=== PATIENT | male | born 1985 | race Caucasian/White ===

== ENCOUNTER 2017-05-12 10:25 | Emergency (ER) | payer OTHER ==
--- NOTE | 2017-05-12 10:47 | EDM.PDOC ---
ED HPI GENERAL MEDICAL PROBLEM - General Chief Complaint: Lower Extremity Injury/Pain Stated Complaint: FELL DOWN STAIRS AT WORK Time Seen by Provider: 05/12/17 10:29 Source of Information: Reports: Patient, RN, RN Notes Reviewed History Limitations: Reports: No Limitations - History of Present Illness INITIAL COMMENTS - FREE TEXT/NARRATIVE: Patient presents to the emergency room at [facility] complaining of a right ankle injury. This is a work-related injury. 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 The patient works for the [employer]. The patient complains of pain along the lateral midfoot. The patient denies any numbness tingling or paresthesia to the right lower extremity. The patient denies any previous injury or trauma to the affected area. The patient denies any right foot surgeries. Onset: Today Onset Date: 05/12/17 Onset Time: 10:00 Duration: Waxing/Waning Location: Reports: Lower Extremity, Right Quality: Reports: Throbbing Severity: Moderate Improves with: Reports: Rest Worsens with: Reports: Movement Context: Reports: Trauma Associated Symptoms: Reports: No Other Symptoms Right Ankle Pain Score (Numeric/FACES): 5 - Related Data Allergies Allergy/AdvReac Type Severity Reaction Status Date / Time No Known Allergies Allergy Verified 05/12/17 10:47 Home Meds: Home Meds . [No Known Home Meds] 05/12/17 [History] Review of Systems - Review of Systems Review Of Systems: See Below Constitutional: Denies: Chills, Fever, Weakness Respiratory: Denies: Shortness of Breath, Cough Cardiovascular: Denies: Chest Pain, Palpitations Musculoskeletal: Reports: Foot Pain (right) Skin: Reports: No Symptoms Neurological: Reports: No Symptoms. Denies: Numbness, Paresthesia, Tingling ED EXAM, GENERAL - Physical Exam Exam: See Below Exam Limited By: No Limitations General Appearance: Alert, No Apparent Distress Respiratory/Chest: No Respiratory Distress, Lungs Clear, Normal Breath Sounds Cardiovascular: Regular Rate, Rhythm Peripheral Pulses: 2+: Posterior Tibial (L), Posterior Tibial (R), Dorsalis Pedis (L), Dorsalis Pedis (R) Extremities: Limited Range of Motion (Right foot due to pain), Other (Swelling over the right lateral aspect of right foot; negative Woodson test; ROM good but painful; no obvious bone deformity) Neurological: Alert, Oriented Skin Exam: Warm, Dry, Intact, Normal Color, No Rash Course - Vital Signs Last Recorded V/S: Last Vital Signs Temp 36.6 C 05/12/17 10:35 Pulse 74 05/12/17 10:35 Resp 16 05/12/17 10:35 BP 112/63 05/12/17 10:35 Pulse Ox - Orders/Labs/Meds Orders: Active Orders 24 hr Category Date Time Status Ankle Min 3V Rt [CR] Stat Exams 05/12/17 10:41 Taken DME for Discharge [COMM] Routine Oth 05/12/17 10:54 Ordered - Radiology Interpretation Free Text/Narrative:: Right Ankle X-ray: No acute process; see scanned report in EMR Departure - Departure Time of Disposition: 11:13 Disposition: Home, Self-Care 01 Condition: Good Clinical Impression: Encounter related to worker's compensation claim Right ankle sprain Qualifiers: Encounter type: initial encounter Involved ligament of ankle: unspecified ligament Qualified Code(s): S93.401A - Sprain of unspecified ligament of right ankle, initial encounter Fall Qualifiers: Encounter type: initial encounter Qualified Code(s): W19.XXXA - Unspecified fall, initial encounter - Discharge Information Instructions: Ankle Sprain Referrals: PCP,None [Primary Care Provider] - Forms: ED Department Discharge Additional Instructions: 1. Stay well hydrated and rest 2. Rest, elevate, and ice right ankle several times a day 3. Wear TAYLOR wrap at all times, especially when walking a lot 4. May alternate Tylenol/Advil as needed for pain/discomfort 5. See your Primary as symptoms warrant - Problem List Review Problem List Initiated/Reviewed/Updated: Yes - My Orders Last 24 Hours: My Active Orders 05/12/17 10:41 Ankle Min 3V Rt [CR] Stat 05/12/17 10:54 DME for Discharge [COMM] Routine - Assessment/Plan Last 24 Hours: My Active Orders 05/12/17 10:41 Ankle Min 3V Rt [CR] Stat 05/12/17 10:54 DME for Discharge [COMM] Routine
[2017-05-12 10:55] VITALS: BP 112/63
== END 2017-05-12 11:00 | disposition home or self-care (01) ==
LOC: VM.ED 10:25
DX: S93.401A Sprain of unspecified ligament of right ankle, initial encounter (principal); W19.XXXA Unspecified fall, initial encounter; Y99.0 Civilian activity done for income or pay
CPT/HCPCS: 73610-RT; 99283